=== PATIENT | female | born 1995 ===

== ENCOUNTER 2016-03-07 17:04 | Emergency (ER) | payer MEDICAID ==
[2016-03-07 17:21] VITALS: RESP 16; TEMP 97.7
--- NOTE | 2016-03-07 18:22 | UCPHY ---
H & P Time Seen by Provider: 03/07/16 18:14 Patient Type: New HPI/ROS: This patient presents with a chief complaint of lightheadedness, no nausea, weakness headache and eye pain all of which began this morning. She admits to some congestion and has mild cough and thinks she might have had a fever. She has not had any vomiting, abdominal pain or diarrhea and her appetite has been good today. She denies any urinary tract symptoms such as frequency, urgency or dysuria. She does admit to some myalgias. She said that she felt this way once before when she was anemic. REVIEW OF SYSTEMS: Constitutional: Weakness, lightheadedness, subjective fever, fatigue Eyes: No complaints ENT: Mild sore throat, congestion no ear pain Respiratory: Minimal cough no shortness of breath Cardiac: No chest pain no palpitations Gastrointestinal: Slight nausea without vomiting, diarrhea or abdominal pain Genitourinary: No frequency, urgency, dysuria or hematuria Musculoskeletal: Myalgias Skin: No rash Neurological: Headache initially described as severe but now mild. Smoking Status: Never smoked Physical Exam: GENERAL: Well-appearing, well-nourished and in no acute distress. HEAD: Atraumatic, normocephalic. EYES: Pupils equal round and reactive to light, extraocular movements intact, sclera anicteric, conjunctiva are normal. ENT: TMs normal, nares patent, oropharynx clear without exudates. Moist mucous membranes. NECK: Normal range of motion, supple without lymphadenopathy or JVD. LUNGS: Breath sounds clear to auscultation bilaterally and equal. No wheezes rales or rhonchi. HEART: Regular rate and rhythm without murmurs, rubs or gallops. ABDOMEN: Soft, nontender, normoactive bowel sounds. No guarding, no rebound. No masses appreciated. EXTREMITIES: Normal range of motion, no pitting or edema. No clubbing or cyanosis. NEUROLOGICAL: Cranial nerves II through XII grossly intact. Normal speech, normal gait. PSYCH: Normal mood, normal affect. SKIN: Warm, dry, normal turgor, no visible rashes or lesions. Constitutional: Initial Vital Signs Temperature (C) 36.5 C 03/07/16 17:16 Heart Rate 78 03/07/16 17:16 Respiratory Rate 16 03/07/16 17:16 Blood Pressure 106/73 03/07/16 17:16 O2 Sat (%) 98 03/07/16 17:16 O2 Delivery Mode Room Air Allergies/Adverse Reactions: No Known Allergies Allergy (Verified 03/07/16 17:20) Home Medications: Medication Instructions Recorded NK [No Known Home Meds] 03/07/16 Medical Decision Making Differential Diagnosis: I find nothing which would suggest that this patient has a serious medical problem. I am hesitant to label her as having a viral syndrome but that is certainly possible. - Data Points Laboratory Results: Laboratory Results 03/07/16 18:40 03/07/16 18:40 03/07/16 03/07/16 18:40 17:20 WBC 7.22 10^3/uL (3.80-9.50) RBC 5.09 10^6/uL (4.18-5.33) Hgb 14.2 g/dL (12.6-16.3) Hct 44.3 % (38.0-47.0) MCV 87.0 fL (81.5-99.8) MCH 27.9 pg (27.9-34.1) MCHC 32.1 L g/dL (32.4-36.7) RDW 14.9 % (11.5-15.2) Plt Count 189 10^3/uL (150-400) MPV 10.7 fL (8.7-11.7) Neut % (Auto) 71.7 % (39.3-74.2) Lymph % (Auto) 15.4 % (15.0-45.0) Piute % (Auto) 11.6 % (4.5-13.0) Eos % (Auto) 0.6 % (0.6-7.6) Baso % (Auto) 0.4 % (0.3-1.7) Nucleat RBC Rel Count 0.0 % (0.0-0.2) Absolute Neuts (auto) 5.18 10^3/uL (1.70-6.50) Absolute Lymphs (auto) 1.11 10^3/uL (1.00-3.00) Absolute Monos (auto) 0.84 H 10^3/uL (0.30-0.80) Absolute Eos (auto) 0.04 10^3/uL (0.03-0.40) Absolute Basos (auto) 0.03 10^3/uL (0.02-0.10) Absolute Nucleated RBC 0.00 10^3/uL (0-0.01) Immature Gran % 0.3 % (0.0-1.1) Immature Gran # 0.02 10^3/uL (0.00-0.10) Sodium 144 mEq/L (134-144) Potassium 4.2 mEq/L (3.5-5.2) Chloride 103 mEq/L (97-110) Carbon Dioxide 27 mEq/l (22-31) Anion Gap 14 mEq/L (8-16) BUN 11 mg/dL (7-23) Creatinine 0.8 mg/dL (0.6-1.0) Estimated GFR > 60 Glucose 76 mg/dL (70-100) Calcium 9.6 mg/dL (8.5-10.4) Beta HCG, Qual NEGATIVE Influenza Typ A,B (DFA) NEGATIVE FOR FLU (NEGATIVE) Departure - Departure Disposition: Home, Routine, Self-Care Clinical Impression: Fatigue Qualifiers: Fatigue type: other Qualifier Code: (R53.83) Other fatigue Condition: Good Instructions: Lightheadedness (ED), Weakness (ED) Additional Instructions: If your symptoms have not improved in 3-5 days you should be re-evaluated. If in the meantime you develop new worrisome symptoms you should be seen sooner. Drink plenty of fluids and keep herself well hydrated. Adult Pain & Fever Control: We recommend Acetaminophen (Tylenol) and Ibuprofen (Motrin, Advil) for pain and fever control. When fever is high or pain severe, both drugs can be used at the same time, but at different intervals. Please note the time differences. Your dose is: Acetaminophen [650]mg every 4 to 6 hours ibuprofen [600]mg every [6] hours with food OR naproxen Sodium (Aleve) [440]mg every 12 hours. Note: do not take Acetaminophen with Hydrocodone (Vicodin, Lortab) or Oxycodone (Percocet). These medications also contain Acetaminophen. No more than 3000 mg of Acetaminophen should be taken in 24 hours (for an adult) . The maximal dose of ibuprofen that it is safe in a 24-hour period is 2400 mg. You may take 400 mg every 4 hours, 600 mg every 6 hours or 800 mg every 8 hours safely. Referrals: SARBJIT KNOWLES,. [Primary Care Provider] - As per Instructions - PQRS PQRS Measurement: Not applicable
[2016-03-07 18:46] LABS: % IMMATURE GRANULYOCYTES 0.3 % (0.0-1.1); ABSOLUTE IMMATURE GRANULOCYTES 0.02 10^3/uL (0.00-0.10); ADD DIFF? NO; ADD MORPH? NO; ADD SCAN? NO; ATYPICAL LYMPHOCYTE FLAG 20 (0-99); FRAGMENT RBC FLAG 0 (0-99); HEMATOCRIT 44.3 % (38.0-47.0); HEMOGLOBIN 14.2 g/dL (12.6-16.3); LEFT SHIFT FLG 0 (0-99); LIPEMIA HEMOLYSIS FLAG 80 (0-99); MEAN CELL HEMOGLOBIN 27.9 pg (27.9-34.1); MEAN CELL HEMOGLOBIN CONCENTR. 32.1 g/dL (32.4-36.7); MEAN PLATELET VOLUME 10.7 fL (8.7-11.7); PLATELET CLUMPS FLAG 10 (0-99); PLATELET COUNT 189 10^3/uL (150-400); RED BLOOD CELL COUNT 5.09 10^6/uL (4.18-5.33); RED CELL DISTRIBUTION WIDTH 14.9 % (11.5-15.2)
[2016-03-07 18:59] LABS: ANION GAP 14 mEq/L (8-16); CALCIUM 9.6 mg/dL (8.5-10.4); CARBON DIOXIDE 27 mEq/l (22-31); CHLORIDE 103 mEq/L (97-110); CREATININE 0.8 mg/dL (0.6-1.0); GLOMERULAR FILTRATION RATE > 60; GLUCOSE 76 mg/dL (70-100); POTASSIUM 4.2 mEq/L (3.5-5.2); SODIUM 144 mEq/L (134-144)
[2016-03-07 19:21] VITALS: BP 107/76; PULSE 80; O2SAT 99
== END 2016-03-07 19:22 | disposition home or self-care (01) ==
LOC: CED 17:04
DX: R53.83 Other fatigue (principal); R42 Dizziness and giddiness; R51 Headache; H57.10 Ocular pain, unspecified eye
CPT/HCPCS: 80048-PO; 84703-PO; 85025-PO; 87400-PO; 99203-PO; G0463-PO